=== PATIENT | male | born 1980 | race Caucasian/White ===

== ENCOUNTER 2016-06-06 16:57 | Observation (INO) | payer SELFPAY ==
[~2016-06-06] VITALS: Ht 180.3 cm; Wt 70.0 kg
[2016-06-06 17:00] VITALS: BP 114/76; PULSE 88; RESP 20; TEMP 98.7; O2SAT 97
--- NOTE | 2016-06-06 17:54 | PD ---
HPI Chief Complaint: Abdominal Pain Time Seen by Provider: 17:16 Travel History International Travel<30 days: No Contact w/Intl Traveler<30days: No Traveled to known affect area: No History of Present Illness HPI 36-year-old male came to the emergency room with history of abdominal pain in the left lower quadrant, non radiating. Patient says he had his appendix taken out 2 months ago and since then he's been getting pain on and off. No history of vomiting or diarrhea. This time the pain has been going on for past 5 days. No history of fever or chills. Vital signs are stable. [facility] Past Medical History Narrative Medical List of his past medical history as reviewed from the nursing note. Past Surgical History Other Surgery: Yes (appendectomy) Social History Alcohol Use: No Tobacco Use: Yes Allergies-Medications (Allergen,Severity, Reaction): Coded Allergies: Sulfa (Verified Allergy, Severe, 06/06/16) Comments List of allergies reviewed from the nursing note. Reported Meds & Prescriptions Reported Meds & Active Scripts Active No Active Prescriptions or Reported Medications Narrative Medication List of his home medications reviewed from the nursing note. Review of Systems Except as stated in HPI: all other systems reviewed are Neg Physical Exam Narrative GENERAL: Awake, alert, anxious, moderate distress SKIN: Warm and dry. HEAD: Atraumatic. Normocephalic. EYES: Pupils equal and round. No scleral icterus. No injection or drainage. ENT: No nasal bleeding or discharge. Mucous membranes pink and moist. NECK: Trachea midline. No JVD. CARDIOVASCULAR: Regular rate and rhythm. No murmur appreciated. RESPIRATORY: No accessory muscle use. Clear to auscultation. Breath sounds equal bilaterally. GASTROINTESTINAL: Abdomen soft, left lower quadrant tenderness, nondistended. Hepatic and splenic margins not palpable. MUSCULOSKELETAL: No obvious deformities. No clubbing. No cyanosis. No edema. NEUROLOGICAL: Awake and alert. No obvious cranial nerve deficits. Motor grossly within normal limits. Normal speech. PSYCHIATRIC: Appropriate mood and affect; insight and judgment normal. Data Data Last Documented VS Vital Signs Date Time Temp Pulse Resp B/P Pulse Ox O2 Delivery O2 Flow Rate FiO2 06/06/16 20:09 16 06/06/16 20:09 99 06/06/16 17:00 98.7 88 114/76 Room Air Orders Complete Blood Count With Diff (06/06/16 17:59) Comprehensive Metabolic Panel (06/06/16 17:59) Lipase (06/06/16 17:59) Urinalysis - C+S If Indicated (06/06/16 17:59) Ct Abd/Pel W Iv Contrast(Rout) (06/06/16 17:59) Iv Access Insert/Monitor (06/06/16 17:59) Ecg Monitoring (06/06/16 17:59) Oximetry (06/06/16 17:59) Morphine Inj (Morphine Inj) (06/06/16 18:00) Ondansetron Inj (Zofran Inj) (06/06/16 18:00) Sodium Chlor 0.9% 1000 Ml Inj (Ns 1000 M (06/06/16 17:59) Sodium Chloride 0.9% Flush (Ns Flush) (06/06/16 18:00) Diatrizoate Liq ( Gastroview Liq) (06/06/16 18:04) Oral Contrast - Adult (06/06/16 18:06) Iohexol 350 Inj (Omnipaque 350 Inj) (06/06/16 19:47) Morphine Inj (Morphine Inj) (06/06/16 20:15) Levofloxacin 750 Mg Premix Inj (Levaquin (06/06/16 20:30) Metronidazole 500 Mg Inj (Flagyl 500 Mg (06/06/16 20:30) Admit Order (Ed Use Only) (06/06/16 20:35) Labs Laboratory Tests Test 06/06/16 06/06/16 18:15 20:00 White Blood Count 11.7 TH/MM3 Red Blood Count 5.15 MIL/MM3 Hemoglobin 15.1 GM/DL Hematocrit 45.4 % Mean Corpuscular Volume 88.2 FL Mean Corpuscular Hemoglobin 29.3 PG Mean Corpuscular Hemoglobin 33.2 % Concent Red Cell Distribution Width 14.8 % Platelet Count 254 TH/MM3 Mean Platelet Volume 9.0 FL Neutrophils (%) (Auto) 67.1 % Lymphocytes (%) (Auto) 22.3 % Monocytes (%) (Auto) 7.5 % Eosinophils (%) (Auto) 2.6 % Basophils (%) (Auto) 0.5 % Neutrophils # (Auto) 7.8 TH/MM3 Lymphocytes # (Auto) 2.6 TH/MM3 Monocytes # (Auto) 0.9 TH/MM3 Eosinophils # (Auto) 0.3 TH/MM3 Basophils # (Auto) 0.1 TH/MM3 CBC Comment DIFF FINAL Differential Comment Sodium Level 141 MEQ/L Potassium Level 3.9 MEQ/L Chloride Level 104 MEQ/L Carbon Dioxide Level 31.9 MEQ/L Anion Gap 5 MEQ/L Blood Urea Nitrogen 15 MG/DL Creatinine 1.08 MG/DL Estimat Glomerular Filtration 77 ML/MIN Rate Random Glucose 80 MG/DL Calcium Level 8.8 MG/DL Total Bilirubin 0.8 MG/DL Aspartate Amino Transf 31 U/L (AST/SGOT) Alanine Aminotransferase 21 U/L (ALT/SGPT) Alkaline Phosphatase 119 U/L Total Protein 7.3 GM/DL Albumin 3.8 GM/DL Lipase 97 U/L Urine Color LIGHT-YELLOW Urine Turbidity CLEAR Urine pH 6.0 Urine Specific [place] 1.013 Urine Protein NEG mg/dL Urine Glucose (UA) NEG mg/dL Urine Ketones NEG mg/dL Urine Occult Blood NEG Urine Nitrite NEG Urine Bilirubin NEG Urine Urobilinogen LESS THAN 2.0 MG/DL Urine Leukocyte Esterase NEG Urine RBC LESS THAN 1 /hpf Urine WBC LESS THAN 1 /hpf Microscopic Urinalysis Comment CULT NOT INDICATED MDM Medical Decision Making Medical Screen Exam Complete: Yes Emergency Medical Condition: Yes Medical Record Reviewed: Yes Differential Diagnosis Acute diverticulitis, UTI, abdominal pain NOS Narrative Course 6:54 PM awaiting for the blood test results and the CAT scan to be done and resulted. Will be signed over to the oncoming ER physician. Patient has been medicated for pain. Procedures EKG Prior to Arrival: No Scripts No Active Prescriptions or Reported Meds Elke Clark MD Jun 06, 2016 17:54
[2016-06-06] MEDS ORDERED: SODIUM CHLOR 0.9% 1000 ML INJ 1,000 ML IV SCH (17:59)
[2016-06-06] MEDS ORDERED: ONDANSETRON HCL 4 MG/2 ML VIAL IVP ONE (18:00)
[2016-06-06] MEDS ORDERED: SODIUM CHLORIDE 0.9% FLUSH 5 ML FLUSH IVF PRN (18:00)
[2016-06-06] MEDS ORDERED: MORPHINE SULFATE 4 MG/ML INJ IV PUSH ONE ×2 (18:00→20:15)
[2016-06-06] MEDS ORDERED: DIATRIZOATE MEGLUM/DIATRIZOATE SOD 9 ML CUP ONE (18:04)
[2016-06-06 18:45] LABS: AUTOMATED NEUTROPHIL # 7.8 TH/MM3 (1.8-7.7); BASOPHIL # 0.1 TH/MM3 (0-0.2); BASOPHIL % 0.5 % (0.0-2.0); EOSINOPHIL # 0.3 TH/MM3 (0-0.4); EOSINOPHIL % 2.6 % (0.0-4.0); HEMATOCRIT 45.4 % (39.0-51.0); HEMO FLAGS DIFF FINAL; LYMPH % 22.3 % (9.0-44.0); LYMPHOCYTE # 2.6 TH/MM3 (1.0-4.8); MEAN CELL VOLUME 88.2 FL (80.0-100.0); MEAN CORPUSCULAR HEMOGLOBIN 29.3 PG (27.0-34.0); MEAN CORPUSCULAR HGB CONC 33.2 % (32.0-36.0); MONO % 7.5 % (0.0-8.0); NEUT % 67.1 % (16.0-70.0); PLATELET COUNT 254 TH/MM3 (150-450); RED BLOOD COUNT 5.15 MIL/MM3 (4.50-5.90); RED CELL DISTRIBUTION WIDTH 14.8 % (11.6-17.2); WHITE BLOOD COUNT 11.7 TH/MM3 (4.0-11.0)
[2016-06-06 19:21] LABS: ALKALINE PHOSPHATASE 119 U/L (45-117); ALT (GPT) 21 U/L (12-78); ANION GAP 5 MEQ/L (5-15); AST (GOT) 31 U/L (15-37); BICARBONATE 31.9 MEQ/L (21.0-32.0); BLOOD UREA NITROGEN 15 MG/DL (7-18); CHLORIDE 104 MEQ/L (98-107); GLOMERULAR FILTRATION RATE 77 ML/MIN (>89); SODIUM (NA) 141 MEQ/L (136-145); TOTAL BILIRUBIN ADULT 0.8 MG/DL (0.2-1.0)
[2016-06-06 19:25] LABS: POTASSIUM 3.9 MEQ/L (3.5-5.1)
[2016-06-06] MEDS ORDERED: IOHEXOL 350 MG/ML 10 ML VIAL (for RAD DIAG) IV ONE (19:47)
--- NOTE | 2016-06-06 20:03 | RADRPT ---
EXAM DATE/TIME: 06/06/2016 19:40 [place] COMPARISON: No previous studies available for comparison. INDICATIONS : Left lower quadrant pain. Appendectomy a few months ago, complains of pain since surgery. IV CONTRAST: 76 cc Omnipaque 350 (iohexol) IV ORAL CONTRAST: No oral contrast ingested. RADIATION DOSE: 9.95 CTDIvol (mGy) MEDICAL HISTORY : None SURGICAL HISTORY : Appendectomy. ENCOUNTER: Initial ACUITY: 3 months PAIN SCALE: 5/10 LOCATION: Left lower quadrant TECHNIQUE: Volumetric scanning of the abdomen and pelvis was performed. Using automated exposure control and ad justment of the mA and/or kV according to patient size, radiation dose was kept as low as reasonably achievable to obtain optimal diagnostic quality images. FINDINGS: LOWER LUNGS: The visualized lower lungs are clear. LIVER: There is a round hypodense lesion in the lateral segment left lobe liver measuring 2.2 cm. Margins a re mildly irregular and there appears to be a nodular area along the right lateral wall. Mean CT den sity is 45 Hounsfield units. No focal lesions in the right lobe of the liver. No biliary ductal dil atation. No calcified gallstones. SPLEEN: Normal size without lesion. PANCREAS: Within normal limits. KIDNEYS: Normal in size and shape. There is no mass, stone or hydronephrosis. ADRENAL GLANDS: Within normal limits. VASCULAR: There is no aortic aneurysm. BOWEL/MESENTERY: There is moderate distention of the stomach with air fluid level. No dilated loops of small or large bowel. Oral contrast passes two thirds the way through the small bowel. No induration about the ap pendectomy site in the right lower quadrant. There are multiple diverticula in the sigmoid colon. T here is a focal rounded area of rim density about some fat located anterior to the junction of the si gmoid colon and descending colon; this measures 1.6 cm in length and there is some mild induration of the fat about this area. There are multiple small diverticula seen throughout the sigmoid colon. T here is a small amount of free fluid seen about the dependent portion of the pelvis and rectum. ABDOMINAL WALL: Within normal limits. RETROPERITONEUM: There is no lymphadenopathy. BLADDER: No wall thickening or mass. REPRODUCTIVE: Within normal limits. INGUINAL: There is no lymphadenopathy or hernia. MUSCULOSKELETAL: Within normal limits for patient age. CONCLUSION: 1. Focal area of induration surrounding a rim density about some fat adjacent to the junction of the descending colon and sigmoid colon. There is associated mild free fluid in the pelvis. There are mu ltiple diverticula in the sigmoid colon, but this density appears to be on the mesenteric side. Diff erential considerations for this finding include a small inflamed diverticulum and epiploic appendagi tis. 2. Focal lesion in the left lobe liver may represent a hemangioma or complicated cyst. Further asses sment could be performed with dynamic phase MRI. Brian Brady MD on June 06, 2016 at 19:54 Board Certified Radiologist. This report was verified electronically.
[2016-06-06 20:09] VITALS: O2SAT 99
[2016-06-06 20:24] LABS: BLOOD, URINE NEG (NEG); GLUCOSE,URINE NEG (NEG); KETONE, URINE NEG (NEG); NITRITE,URINE NEG (NEG); URINE COLOR LIGHT-YELLOW (YELLW/STRAW)
--- NOTE | 2016-06-06 20:27 | PD ---
Physical Exam Narrative Patient was seen by ED physician and signed out to me. Data Data Last Documented VS Vital Signs Date Time Temp Pulse Resp B/P Pulse Ox O2 Delivery O2 Flow Rate FiO2 06/06/16 20:09 16 06/06/16 20:09 99 06/06/16 17:00 98.7 88 114/76 Room Air Orders Complete Blood Count With Diff (06/06/16 17:59) Comprehensive Metabolic Panel (06/06/16 17:59) Lipase (06/06/16 17:59) Urinalysis - C+S If Indicated (06/06/16 17:59) Ct Abd/Pel W Iv Contrast(Rout) (06/06/16 17:59) Iv Access Insert/Monitor (06/06/16 17:59) Ecg Monitoring (06/06/16 17:59) Oximetry (06/06/16 17:59) Morphine Inj (Morphine Inj) (06/06/16 18:00) Ondansetron Inj (Zofran Inj) (06/06/16 18:00) Sodium Chlor 0.9% 1000 Ml Inj (Ns 1000 M (06/06/16 17:59) Sodium Chloride 0.9% Flush (Ns Flush) (06/06/16 18:00) Diatrizoate Liq ( Gastroview Liq) (06/06/16 18:04) Oral Contrast - Adult (06/06/16 18:06) Iohexol 350 Inj (Omnipaque 350 Inj) (06/06/16 19:47) Morphine Inj (Morphine Inj) (06/06/16 20:15) Labs Laboratory Tests Test 06/06/16 18:15 White Blood Count 11.7 TH/MM3 Red Blood Count 5.15 MIL/MM3 Hemoglobin 15.1 GM/DL Hematocrit 45.4 % Mean Corpuscular Volume 88.2 FL Mean Corpuscular Hemoglobin 29.3 PG Mean Corpuscular Hemoglobin 33.2 % Concent Red Cell Distribution Width 14.8 % Platelet Count 254 TH/MM3 Mean Platelet Volume 9.0 FL Neutrophils (%) (Auto) 67.1 % Lymphocytes (%) (Auto) 22.3 % Monocytes (%) (Auto) 7.5 % Eosinophils (%) (Auto) 2.6 % Basophils (%) (Auto) 0.5 % Neutrophils # (Auto) 7.8 TH/MM3 Lymphocytes # (Auto) 2.6 TH/MM3 Monocytes # (Auto) 0.9 TH/MM3 Eosinophils # (Auto) 0.3 TH/MM3 Basophils # (Auto) 0.1 TH/MM3 CBC Comment DIFF FINAL Differential Comment Sodium Level 141 MEQ/L Potassium Level 3.9 MEQ/L Chloride Level 104 MEQ/L Carbon Dioxide Level 31.9 MEQ/L Anion Gap 5 MEQ/L Blood Urea Nitrogen 15 MG/DL Creatinine 1.08 MG/DL Estimat Glomerular Filtration 77 ML/MIN Rate Random Glucose 80 MG/DL Calcium Level 8.8 MG/DL Total Bilirubin 0.8 MG/DL Aspartate Amino Transf 31 U/L (AST/SGOT) Alanine Aminotransferase 21 U/L (ALT/SGPT) Alkaline Phosphatase 119 U/L Total Protein 7.3 GM/DL Albumin 3.8 GM/DL Lipase 97 U/L [facility] Supervised Visit with EUGENIA: No Interpretation(s) 2017 p.m. Last Impressions Abdomen/Pelvis CT 06/06/16 6208 Signed Impressions: Service Date/Time: Monday, June 06, 2016 19:40 - CONCLUSION: 1. Focal area of induration surrounding a rim density about some fat adjacent to the junction of the descending colon and sigmoid colon. There is associated mild free fluid in the pelvis. There are multiple diverticula in the sigmoid colon, but this density appears to be on the mesenteric side. Differential considerations for this finding include a small inflamed diverticulum and epiploic appendagitis. 2. Focal lesion in the left lobe liver may represent a hemangioma or complicated cyst. Further assessment could be performed with dynamic phase MRI. Brian Brady MD 2017 p.m. CBC within normal limit. CMP within normal limit. Narrative Course Patient given IV fluids, morphine. Levaquin 750 mg IV. Flagyl 500 mg IV. Diagnosis Primary Impression: Acute diverticulitis Additional Impression: Epiploic appendagitis Admitting Information Admitting Physician Requests: Observation Scripts No Active Prescriptions or Reported Meds Vinicius Faulkner MD Jun 06, 2016 20:27
[2016-06-06] MEDS ORDERED: metroNIDAZOLE 500 MG INJ 100 ML IV ONE (20:30)
[2016-06-06] MEDS ORDERED: LEVOFLOXACIN 750 MG PREMIX INJ 150 ML IV ONE (20:30)
[2016-06-06 20:44] LABS: COMMENT (UR) CULT NOT INDICATED; CULTURE IF INDICATED CULT NOT INDICATED
--- NOTE | 2016-06-06 20:57 | HHI.HP ---
[facility] Primary Care Physician No Primary Care Physician Admission Diagnosis acute diverticulitis. Epiploic appendagitis Diagnoses: (1) Intractable abdominal pain Diagnosis: Principal (2) Diverticulitis Diagnosis: Principal (3) Tobacco abuse Diagnosis: Principal Travel History International Travel<30 Days: No Contact w/Intl Traveler <30 Da: No Traveled to Known Affected Are: No History of Present Illness This is a 36-year-old male with no significant PMH who presented to the ER with complaints of abdominal pain x5 days. States he [place]oscopic [place] appro[place] and has had intermittent pain since then, however over the last 5 days pain has gotten progressively worse. Notes pain worse w/ cough, urination or w/ bowel movement. Denies fever, chills , nausea, vomiting or diarrhea. On arrival, BP 114/76, HR 88, O2 sat 97% on RA , Afebrile. WBC 11.7, no shift. Chemistry essentially unremarkable except for GFR 77. U/a negative. CT Abd/Pelvis w/ focal area of induration surrounding rim density adjacent to the junction of the descending colon and sigmoid colon associated mild free fluid in pelvis, multiple diverticula in the sigmoid colon , possibly inflamed diverticulum versus epiploic appendagitis. S/p Levaquin and Flagyl in ER. S/p Morphine x2 w/ minimal improvement. Review of Systems Other ROS: 14 point review of systems otherwise negative. Past Family Social History Past Medical History PMH: None Past Surgical History PAST SURGICAL HISTORY: Laparoscopic Appendectomy Allergies: Coded Allergies: Sulfa (Verified Allergy, Severe, 06/06/16) Family History PAST FAMILY HISTORY: Reviewed. No h/o DM or CAD Social History PAST SOCIAL HISTORY: Negative for alcohol or drugs. Smokes 1ppd. Physical Exam Vital Signs Vital Signs Date Time Temp Pulse Resp B/P Pulse Ox O2 Delivery O2 Flow Rate FiO2 06/06/16 20:09 16 06/06/16 20:09 99 06/06/16 17:26 18 06/06/16 17:00 98.7 88 20 114/76 97 Room Air Physical Exam PE: GENERAL: Middle aged male in no acute distress, at bedside. Smells strongly of tobacco. HEENT: PERRLA, EOMI. No scleral icterus or conjunctival pallor. No lid lag or facial droop. CARDIOVASCULAR: Regular rate and rhythm. No obvious murmurs to auscultation. No chest tenderness to palpation. RESPIRATORY: No obvious rhonchi or wheezing. Clear to auscultation. Breath sounds equal bilaterally. GASTROINTESTINAL: Abdomen soft, mild generalized tenderness to palpation, nondistended. BS normal. MUSCULOSKELETAL: Extremities without clubbing, cyanosis, or edema. No obvious deformities. NEUROLOGICAL: Awake, alert and oriented x4. No focal neurologic deficits. Moving both upper and lower extremities spontaneously. Laboratory Laboratory Tests Test 06/06/16 06/06/16 18:15 20:00 White Blood Count 11.7 Red Blood Count 5.15 Hemoglobin 15.1 Hematocrit 45.4 Mean Corpuscular Volume 88.2 Mean Corpuscular Hemoglobin 29.3 Mean Corpuscular Hemoglobin 33.2 Concent Red Cell Distribution Width 14.8 Platelet Count 254 Mean Platelet Volume 9.0 Neutrophils (%) (Auto) 67.1 Lymphocytes (%) (Auto) 22.3 Monocytes (%) (Auto) 7.5 Eosinophils (%) (Auto) 2.6 Basophils (%) (Auto) 0.5 Neutrophils # (Auto) 7.8 Lymphocytes # (Auto) 2.6 Monocytes # (Auto) 0.9 Eosinophils # (Auto) 0.3 Basophils # (Auto) 0.1 CBC Comment DIFF FINAL Differential Comment Sodium Level 141 Potassium Level 3.9 Chloride Level 104 Carbon Dioxide Level 31.9 Anion Gap 5 Blood Urea Nitrogen 15 Creatinine 1.08 Estimat Glomerular Filtration 77 Rate Random Glucose 80 Calcium Level 8.8 Total Bilirubin 0.8 Aspartate Amino Transf 31 (AST/SGOT) Alanine Aminotransferase 21 (ALT/SGPT) Alkaline Phosphatase 119 Total Protein 7.3 Albumin 3.8 Lipase 97 Urine Color LIGHT-YELLOW Urine Turbidity CLEAR Urine pH 6.0 Urine Specific [place] 1.013 Urine Protein NEG Urine Glucose (UA) NEG Urine Ketones NEG Urine Occult Blood NEG Urine Nitrite NEG Urine Bilirubin NEG Urine Urobilinogen LESS THAN 2.0 Urine Leukocyte Esterase NEG Urine RBC LESS THAN 1 Urine WBC LESS THAN 1 Microscopic Urinalysis Comment CULT NOT INDICATED Result Diagram: 06/06/16181406/06/161814 Assessment and Plan Problem List: (1) Intractable abdominal pain ICD Code: R10.9 Status: Acute (2) Diverticulitis ICD Code: K57.92 Status: Acute (3) Tobacco abuse ICD Code: Z72.0 Status: Acute Assessment and Plan A/P: 1. Intractable Abd Pain: c/o ongoing pain x2 months following Appendectomy, now w/ pain progressively worse x5 days. No nausea, vomiting or diarrhea. Denies fever, chills. S/p Morphine x2 in ER, reports no improvement. Analgesics/antiemetics as needed. 2. Diverticulitis: Possible. CT Abd/Pelvis w/ focal area of induration surrounding area adjacent to the junction of descending colon and sigmoid colon , associated mild free fluid in the pelvis and multiple diverticula, possibly inflamed diverticulum or epiploic appendagitis, images reviewed by me. Afebrile. WBC 11 however no shift. S/p Levaquin/Flagyl in ER, will continue w / IV Abx, IVF for hydration. Consult GI for further evaluation. 3. Tobacco Abuse: Counselled. NicoDerm prn. 4. DVT Prophylaxis: SCD/Teds. 5. Social work for d/c planning as needed. 6. Case discussed w/ ER physician at length. Anan Collins MD Jun 06, 2016 20:57
[2016-06-06] MEDS ORDERED: ONDANSETRON HCL 4 MG/2 ML VIAL IVP PRN (21:00)
[2016-06-06] MEDS ORDERED: ACETAMINOPHEN 325 MG TAB PO PRN (21:00)
[2016-06-06] MEDS ORDERED: SODIUM CHLORIDE 0.9% FLUSH 5 ML FLUSH FLUSH PRN (21:00)
[2016-06-06] MEDS ORDERED: BISACODYL 10 MG SUPP PR PRN (21:00)
[2016-06-06] MEDS ORDERED: ACETAMINOPHEN/HYDROcodone 325 MG/5 MG TAB PO PRN (21:00)
[2016-06-06] MEDS: SODIUM CHLORIDE 0.9% FLUSH 5 ML FLUSH FLUSH SCH (21:14)
[2016-06-06] MEDS ORDERED: NICOTINE 21 MG/24 HR PATCH TD PRN (21:30)
[2016-06-06] MEDS: SODIUM CHLOR 0.9% 1000 ML INJ 1,000 ML IV SCH (21:40)
[2016-06-06] MEDS: HYDROmorphone HCL PF 1 MG/ML VIAL IV PRN (21:52)
[2016-06-06 22:05] VITALS: BP 110/70; PULSE 88; RESP 18; O2SAT 99
[2016-06-06 23:12] VITALS: BP 131/80; PULSE 82; RESP 18; TEMP 98; O2SAT 97
[2016-06-07] MEDS: HYDROmorphone HCL PF 1 MG/ML VIAL IV PRN ×4 (01:02→10:35)
[2016-06-07 04:00] VITALS: BP 134/79; PULSE 97; RESP 18; TEMP 98; O2SAT 97
[2016-06-07] MEDS: metroNIDAZOLE 500 MG INJ 100 ML IV SCH ×2 (04:22→12:53)
[2016-06-07] MEDS: SODIUM CHLOR 0.9% 1000 ML INJ 1,000 ML IV SCH (07:00)
[2016-06-07 08:23] VITALS: BP 117/62; PULSE 63; RESP 20; TEMP 97.8; O2SAT 95
[2016-06-07] MEDS: SODIUM CHLORIDE 0.9% FLUSH 5 ML FLUSH FLUSH SCH (09:00)
[2016-06-07] MEDS ORDERED: REMOVE OLD PATCH-NICOTINE T-DERMAL SCH (09:00)
--- NOTE | 2016-06-07 10:15 | HHI.PR ---
Subjective Remarks Follow up for abdominal pain. He reports continued pain of the LLQ, described as constant 10/10 pain. No nausea/vomiting/diarrhea. Some chills but no fever. He is upset about not receiving his IV Dilaudid every 3 hours. Objective Vitals Vital Signs Date Time Temp Pulse Resp B/P Pulse Ox O2 Delivery O2 Flow Rate FiO2 06/07/16 08:23 97.8 63 20 117/62 95 06/07/16 04:00 98.0 97 18 134/79 97 06/06/16 23:12 98.0 82 18 131/80 97 06/06/16 22:05 88 18 110/70 99 Room Air 06/06/16 21:30 18 06/06/16 20:09 16 06/06/16 20:09 99 06/06/16 17:26 18 06/06/16 17:00 98.7 88 20 114/76 97 Room Air I/O 06/06/16 06/06/16 06/06/16 06/07/16 06/07/16 06/07/16 07:00 15:00 23:00 07:00 15:00 23:00 Intake Total 929 ml Balance 929 ml Intake Oral 240 ml IV Total 689 ml Result Diagram: 06/06/165 06/06/161814 Imaging Last Impressions Abdomen/Pelvis CT 06/06/16 8759 Signed Impressions: Service Date/Time: Monday, June 06, 2016 19:40 - CONCLUSION: 1. Focal area of induration surrounding a rim density about some fat adjacent to the junction of the descending colon and sigmoid colon. There is associated mild free fluid in the pelvis. There are multiple diverticula in the sigmoid colon, but this density appears to be on the mesenteric side. Differential considerations for this finding include a small inflamed diverticulum and epiploic appendagitis. 2. Focal lesion in the left lobe liver may represent a hemangioma or complicated cyst. Further assessment could be performed with dynamic phase MRI. Brian Brady MD Objective Remarks GENERAL: Well-nourished, well-developed male patient in NAD. SKIN: Warm and dry. No rash. HEAD: Normocephalic. Atraumatic. NECK: Supple. Trachea midline. CARDIOVASCULAR: Regular rate and rhythm. S1, S2 noted. No murmur appreciated. RESPIRATORY: No accessory muscle use. Clear to auscultation. Breath sounds equal bilaterally. GASTROINTESTINAL: Abdomen soft, nondistended, TTP at LLQ. Normoactive bowel sounds x4. MUSCULOSKELETAL: No obvious deformities. Extremities without clubbing, cyanosis , or edema. NEUROLOGICAL: Awake and alert. No obvious cranial nerve deficits. Motor grossly within normal limits.Normal speech. PSYCHIATRIC: Anxious/agitated; insight and judgment normal. Medications and IVs Current Medications Medications (Trade) Dose Ordered Sig/Cadence Route Start Time Stop Time Status Last Admin (NS 1000 ml Inj) 1,000 ml @ 100 mls/hr Q10H IV 06/06/16 21:00 06/07/16 07:00 (NS Flush) 2 ml UNSCH PRN FLUSH 06/06/16 21:00 (NS Flush) 2 ml BID FLUSH 06/06/16 21:00 06/06/16 21:14 (Zofran Inj) 4 mg Q6H PRN IVP 06/06/16 21:00 (Dulcolax Supp) 10 mg DAILY PRN MD 06/06/16 21:00 (Tylenol) 650 mg Q6H PRN PO 06/06/16 21:00 ([place] 5-325 Mg) 1 tab Q4H PRN PO 06/06/16 21:00 Hydromorphone HCl 1 mg 1 mg Q3H PRN IV 06/06/16 21:00 06/07/16 10:35 Levofloxacin/ Dextrose 150 ml @ 100 mls/hr Q24H IV 06/07/16 21:00 (Flagyl 500 Mg Inj) 100 ml @ 100 mls/hr Q8H IV 06/07/16 04:00 06/07/16 04:22 (Habitrol 21 Mg Patch.24 Hr) 1 patch DAILY PRN TD 06/06/16 21:30 Miscellaneous Information 1 DAILY T-DERMAL 06/07/16 09:00 Urinary Catheter: No Vascular Central Line Catheter: No A/P Problem List: (1) Intractable abdominal pain ICD Code: R10.9 Status: Acute (2) Diverticulitis ICD Code: K57.92 Status: Acute (3) Tobacco abuse ICD Code: Z72.0 Status: Acute Assessment and Plan 36-year-old male with no significant PMH who presented to the ER with complaints of abdominal pain x5 days; underwent [place]oscopic [place] appro[place] and has had intermittent pain since then, however over the last 5 days pain has gotten progressively worse. Intractable Abd Pain: c/o ongoing pain x2 months following Appendectomy, now w / pain progressively worse x5 days. No nausea, vomiting or diarrhea. Denies fever, chills. S/p Morphine x2 in ER, reports no improvement. Continue pain control with IV Dilaudid prn and antiemetics as needed. Suspected Diverticulitis: CT Abd/Pelvis w/ focal area of induration surrounding area adjacent to the junction of descending colon and sigmoid colon, associated mild free fluid in the pelvis and multiple diverticula, possibly inflamed diverticulum or epiploic appendagitis, images reviewed by me. Afebrile. WBC 11 however no shift. S/p Levaquin/Flagyl in ER, will continue w/ IV Abx, IVF for hydration. Consult GI for further evaluation. Tobacco Abuse: Counselled. GustavoDerjevon simmonsn. DVT Prophylaxis: SCD/Teds. Written by Fabiola López, acting as scribe for Dr. Whitten on 06/07/16 at 10:15. The documentation accurately reflects the work performed [id number] by me Dr. Whitten on 06/07/16 at 10:15. Discharge Planning 1415hrs: RN informs me patient left AMA. He was AAOx4. Patient Marcellus Wolf has decided to leave the hospital against medical advice. This patient has the capacity to refuse care and understands the risks of leaving, including permanent disability and/or , and has had an opportunity to ask questions about his condition. The patient has been informed that he may return for care at any time, and follow up has been advised. Discharged patient AGAINST MEDICAL ADVICE Fabiola López PA-C Jun 07, 2016 10:15 Nelsy Whitten MD Jun 07, 2016 15:02
[2016-06-07 11:44] VITALS: BP 122/67; PULSE 78; RESP 20; TEMP 97.7; O2SAT 94
[2016-06-07] MEDS ORDERED: LEVOFLOXACIN 750 MG PREMIX INJ 150 ML IV SCH (21:00)
== END 2016-06-07 14:56 | disposition left against medical advice (07) ==
LOC: EDBD → NEPC 16:57 → NEDA 20:38 → NEPGCP 22:36
PROVIDERS: ADMIT Hospitalist; ATTEND Hospitalist
DX: K57.32 Diverticulitis of large intestine without perforation or abscess without bleeding (principal); R10.32 Left lower quadrant pain; F17.210 Nicotine dependence, cigarettes, uncomplicated; Z71.6 Tobacco abuse counseling
CPT/HCPCS: 74177; 80053; 81001; 83690; 85025; 96361; 96374; 96375; 96376; 99285; G0378; J1170; J1956; J2270; J2405; J7030; Q9963; Q9967

== ENCOUNTER 2016-06-22 21:41 | Emergency (ER) | payer SELFPAY ==
[~2016-06-22] VITALS: Ht 180.3 cm; Wt 68.0 kg
[2016-06-22 21:44] VITALS: BP 113/78; PULSE 96; RESP 16; TEMP 97.5; O2SAT 98
[2016-06-23 03:04] LABS: AUTOMATED NEUTROPHIL # 7.2 TH/MM3 (1.8-7.7); BASOPHIL # 0.1 TH/MM3 (0-0.2); BASOPHIL % 0.6 % (0.0-2.0); EOSINOPHIL # 0.3 TH/MM3 (0-0.4); EOSINOPHIL % 2.8 % (0.0-4.0); HEMATOCRIT 44.2 % (39.0-51.0); HEMO FLAGS DIFF FINAL; LYMPHOCYTE # 2.7 TH/MM3 (1.0-4.8); MEAN CELL VOLUME 86.8 FL (80.0-100.0); MEAN CORPUSCULAR HEMOGLOBIN 29.2 PG (27.0-34.0); MEAN CORPUSCULAR HGB CONC 33.6 % (32.0-36.0); MONO % 9.5 % (0.0-8.0); NEUT % 63.1 % (16.0-70.0); PLATELET COUNT 261 TH/MM3 (150-450); RED CELL DISTRIBUTION WIDTH 14.5 % (11.6-17.2); WHITE BLOOD COUNT 11.4 TH/MM3 (4.0-11.0)
[2016-06-23 03:12] LABS: BLOOD, URINE NEG (NEG); GLUCOSE,URINE NEG (NEG); KETONE, URINE 150 mg/dL (NEG); MUCUS URINE FEW /lpf (OCC); NITRITE,URINE NEG (NEG); PH, URINE 5.5 (5.0-8.5); URINE COLOR YELLOW (YELLW/STRAW)
[2016-06-23 03:14] LABS: COMMENT (UR) CULT NOT INDICATED; CULTURE IF INDICATED CULT NOT INDICATED
[2016-06-23 03:26] LABS: ALT (GPT) 21 U/L (12-78); ANION GAP 9 MEQ/L (5-15); AST (GOT) 20 U/L (15-37); BICARBONATE 28.6 MEQ/L (21.0-32.0); BLOOD UREA NITROGEN 24 MG/DL (7-18); CHLORIDE 102 MEQ/L (98-107); GLOMERULAR FILTRATION RATE 93 ML/MIN (>89); POTASSIUM 3.5 MEQ/L (3.5-5.1); SODIUM (NA) 140 MEQ/L (136-145)
[2016-06-23 03:29] LABS: ALKALINE PHOSPHATASE 125 U/L (45-117); TOTAL BILIRUBIN ADULT 1.3 MG/DL (0.2-1.0)
[2016-06-23 05:52] VITALS: BP 151/61; PULSE 91; RESP 22; TEMP 97.8; O2SAT 100
--- NOTE | 2016-06-23 06:27 | PD ---
HPI Chief Complaint: Abdominal Pain Time Seen by Provider: 05:46 Travel History International Travel<30 days: No Contact w/Intl Traveler<30days: No Traveled to known affect area: No History of Present Illness HPI The patient is a 36 year old male who presents to the [facility] emergency department with a history of abdominal pain that he reports began again 2 days ago. The patient reports that he was admitted to the hospital with similar left lower quadrant abdominal pain 2 weeks ago. He reports that the pain began 2 days prior to that hospital admission. The patient was noted on CT scan to have a focal area of induration adjacent to the junction of the descending colon and the sigmoid colon. The patient was admitted for continued evaluation , IV antibiotic, IV pain medication. According to the electronic medical record , the patient left AGAINST MEDICAL ADVICE prior to the completion of his evaluation. In addition to the patient's complaints of left lower quadrant abdominal pain, the patient reports that 1 hour prior to arriving in the emergency department he had onset of dried her. 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 The patient has a history of tracheostomy previously area he reports that nebulizer treatments usually help. The patient denies any recent fevers, cough, congestion, neck pain, chest pain, vomiting, diarrhea, urinary symptoms, or neurologic symptoms. The patient reports that he recently moved to the area from [place]. He denies having a primary care physician. 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 Cancer: No Cardiovascular Problems: No Diminished Hearing: No Diverticulitis: Yes Endocrine: No Genitourinary: No Immune Disorder: No Medical other: Yes (TRACHEAL STENOSIS) Neurologic: No Psychiatric: No Reproductive: No Respiratory: No Tetanus Vaccination: Unknown Influenza Vaccination: No Past Surgical History Narrative Surgical The patient has a past surgical history significant for laparoscopic appendectomy, right forearm fasciotomy due to extravasation of contrast for a CT , reportedly a history of 100 prior tracheal surgery. Other Surgery: Yes (appendectomy) Social History Alcohol Use: No Tobacco Use: No (the patient reports that he quit smoking 2-3 years ago) Substance Use: No Allergies-Medications (Allergen,Severity, Reaction): Coded Allergies: Sulfa (Verified Allergy, Severe, 06/22/16) Reported Meds & Prescriptions Reported Meds & Active Scripts Active No Active Prescriptions or Reported Medications Review of Systems Except as stated in HPI: all other systems reviewed are Neg General / Constitutional: No: Fever Eyes: No: Visual changes HENT: No: Headaches, Rhinorrhea, Congestion Cardiovascular: No: Chest Pain or Discomfort Respiratory: Positive: Shortness of Breath, No: Cough Gastrointestinal: Positive: Abdominal Pain, No: Nausea, Vomiting, Diarrhea, Changes in Bowel Habits, Indigestion, Loss of Appetite Genitourinary: No: Urgency, Frequency, Dysuria, Flank Pain Musculoskeletal: No: Pain Skin: No Rash Neurologic: No: Weakness, Focal Abnormalities, Change in Mentation, Slurred Speech, Sensory Disturbance Psychiatric: No: Depression Endocrine: No: Polydipsia Hematologic/Lymphatic: No: Easy Bruising Physical Exam Narrative General: The patient is a well-developed well-nourished male in no acute distress. Head and Neck exam: Head is normocephalic atraumatic. Eyes: Pupils are equal round and reactive to light. Nose: Midline septum with pink mucous membranes Mouth: Dentition unremarkable. Moist mucus membranes. Posterior oropharynx is not erythematous. No tonsillar hypertrophy. Uvula midline. Airway patent. Neck: No palpable lymphadenopathy. No nuchal rigidity. No thyromegaly. Cardiovascular: Regular rate and rhythm without murmurs, gallops, or rubs. Lungs: The patient has equal breath sounds bilaterally. The patient has intermittent upper respiratory stridor noted., No wheezes, rhonchi, or crackles. Abdomen: Soft, with tenderness on palpation of the left lower quadrant of the abdomen, no other tenderness on palpation of the other 3 quadrants. No tenderness on palpation of McBurney's point. No guarding, rebound, or rigidity. Negative Dell sign. Normal bowel sounds are audible. Extremities: No clubbing, cyanosis, or edema. 2+ pulses in all 4 extremities. No calf tenderness on palpation. Back: No spinous process tenderness to palpation. No costovertebral angle tenderness to palpation. Neurologic Exam: Grossly nonfocal. Skin Exam: No rash noted. Intact skin that is warm and dry. Data Data Last Documented VS Vital Signs Date Time Temp Pulse Resp B/P Pulse Ox O2 Delivery O2 Flow Rate FiO2 06/23/16 07:14 87 16 111/63 100 Room Air 06/23/16 05:52 97.8 Orders Complete Blood Count With Diff (06/23/16 02:23) Comprehensive Metabolic Panel (06/23/16 02:23) Urinalysis - C+S If Indicated (06/23/16 02:23) Iv Access Insert/Monitor (06/23/16 02:23) Oxygen Administration (06/23/16 02:23) Oximetry (06/23/16 02:23) Lipase (06/23/16 02:23) Ct Abd/Pel W Iv Contrast(Rout) (06/23/16 05:57) Oral Contrast - Adult (06/23/16 06:03) Chest, Single Ap (06/23/16 06:10) Methylprednisolone So Succ Inj (Solumedr (06/23/16 06:30) Albuterol-Ipratropium Neb (Duoneb Neb) (06/23/16 06:30) Diatrizoate Liq ( Gastroview Liq) (06/23/16 06:41) Sodium Chlor 0.9% 1000 Ml Inj (Ns 1000 M (06/23/16 07:00) Blood Glucose (06/23/16 06:46) Labs Laboratory Tests Test 06/23/16 06/23/16 02:40 02:45 Urine Color YELLOW Urine Turbidity HAZY Urine pH 5.5 Urine Specific [place] 1.032 Urine Protein TRACE mg/dL Urine Glucose (UA) NEG mg/dL Urine Ketones 150 mg/dL Urine Occult Blood NEG Urine Nitrite NEG Urine Bilirubin NEG Urine Urobilinogen LESS THAN 2.0 MG/DL Urine Leukocyte Esterase NEG Urine RBC 2 /hpf Urine WBC 1 /hpf Urine Mucus FEW /lpf Microscopic Urinalysis Comment CULT NOT INDICATED White Blood Count 11.4 TH/MM3 Red Blood Count 5.10 MIL/MM3 Hemoglobin 14.9 GM/DL Hematocrit 44.2 % Mean Corpuscular Volume 86.8 FL Mean Corpuscular Hemoglobin 29.2 PG Mean Corpuscular Hemoglobin 33.6 % Concent Red Cell Distribution Width 14.5 % Platelet Count 261 TH/MM3 Mean Platelet Volume 8.6 FL Neutrophils (%) (Auto) 63.1 % Lymphocytes (%) (Auto) 24.0 % Monocytes (%) (Auto) 9.5 % Eosinophils (%) (Auto) 2.8 % Basophils (%) (Auto) 0.6 % Neutrophils # (Auto) 7.2 TH/MM3 Lymphocytes # (Auto) 2.7 TH/MM3 Monocytes # (Auto) 1.1 TH/MM3 Eosinophils # (Auto) 0.3 TH/MM3 Basophils # (Auto) 0.1 TH/MM3 CBC Comment DIFF FINAL Differential Comment Sodium Level 140 MEQ/L Potassium Level 3.5 MEQ/L Chloride Level 102 MEQ/L Carbon Dioxide Level 28.6 MEQ/L Anion Gap 9 MEQ/L Blood Urea Nitrogen 24 MG/DL Creatinine 0.91 MG/DL Estimat Glomerular Filtration 93 ML/MIN Rate Random Glucose 67 MG/DL Calcium Level 9.3 MG/DL Total Bilirubin 1.3 MG/DL Aspartate Amino Transf 20 U/L (AST/SGOT) Alanine Aminotransferase 21 U/L (ALT/SGPT) Alkaline Phosphatase 125 U/L Total Protein 7.7 GM/DL Albumin 4.2 GM/DL Lipase 111 U/L MDM Medical Decision Making Medical Screen Exam Complete: Yes Emergency Medical Condition: Yes Medical Record Reviewed: Yes Interpretation(s) Laboratory Tests Test 06/23/16 06/23/16 02:40 02:45 Urine Color YELLOW Urine Turbidity HAZY Urine pH 5.5 Urine Specific [place] 1.032 Urine Protein TRACE mg/dL Urine Glucose (UA) NEG mg/dL Urine Ketones 150 mg/dL Urine Occult Blood NEG Urine Nitrite NEG Urine Bilirubin NEG Urine Urobilinogen LESS THAN 2.0 MG/DL Urine Leukocyte Esterase NEG Urine RBC 2 /hpf Urine WBC 1 /hpf Urine Mucus FEW /lpf Microscopic Urinalysis Comment CULT NOT INDICATED White Blood Count 11.4 TH/MM3 Red Blood Count 5.10 MIL/MM3 Hemoglobin 14.9 GM/DL Hematocrit 44.2 % Mean Corpuscular Volume 86.8 FL Mean Corpuscular Hemoglobin 29.2 PG Mean Corpuscular Hemoglobin 33.6 % Concent Red Cell Distribution Width 14.5 % Platelet Count 261 TH/MM3 Mean Platelet Volume 8.6 FL Neutrophils (%) (Auto) 63.1 % Lymphocytes (%) (Auto) 24.0 % Monocytes (%) (Auto) 9.5 % Eosinophils (%) (Auto) 2.8 % Basophils (%) (Auto) 0.6 % Neutrophils # (Auto) 7.2 TH/MM3 Lymphocytes # (Auto) 2.7 TH/MM3 Monocytes # (Auto) 1.1 TH/MM3 Eosinophils # (Auto) 0.3 TH/MM3 Basophils # (Auto) 0.1 TH/MM3 CBC Comment DIFF FINAL Differential Comment Sodium Level 140 MEQ/L Potassium Level 3.5 MEQ/L Chloride Level 102 MEQ/L Carbon Dioxide Level 28.6 MEQ/L Anion Gap 9 MEQ/L Blood Urea Nitrogen 24 MG/DL Creatinine 0.91 MG/DL Estimat Glomerular Filtration 93 ML/MIN Rate Random Glucose 67 MG/DL Calcium Level 9.3 MG/DL Total Bilirubin 1.3 MG/DL Aspartate Amino Transf 20 U/L (AST/SGOT) Alanine Aminotransferase 21 U/L (ALT/SGPT) Alkaline Phosphatase 125 U/L Total Protein 7.7 GM/DL Albumin 4.2 GM/DL Lipase 111 U/L Differential Diagnosis Diverticulitis, versus colitis, versus pain medication seeking behavior Narrative Course During the course of the patients emergency department visit, the patients history, examination, and differential diagnosis were reviewed with the patient. The patient had IV access obtained and blood work sent for analysis. The patient was placed on a youth nutritional monitor with oximetry and blood pressure monitoring. The patient's electronic medical record was reviewed. The CT scan of the abdomen and pelvis that was done previously was done with IV contrast only, not by mouth contrast. Therefore, a CT scan with IV and by mouth contrast was ordered at this time to further evaluate. A chest x-ray has been ordered. The patient was provided for his upper respiratory wheezing/stridor Solu-Medrol 125 mg IV, DuoNeb 2. The patient has normal oxygen saturations on room air. The patient was given normal saline 1 L IV fluid bolus. The patients laboratory studies were reviewed and remarkable for a white count of 11.4, hemoglobin 14.9, platelets 261 with 9.5 monocytes. CMP is remarkable for BUN of 24, glucose 67, total bilirubin 1.3, alkaline phosphatase 125, urinalysis shows 150 ketones, otherwise no acute abnormality. Radiology studies were pending at the conclusion of my shift. The patient's case was checked out to the oncoming emergency physician to disposition based on the conclusion of his workup. Diagnosis Primary Impression: Abdominal pain Qualified Code: R10.32 - Left lower quadrant pain Scripts No Active Prescriptions or Reported Meds Sandra Padilla MD Jun 23, 2016 06:27
[2016-06-23] MEDS ORDERED: methylPREDNISolone SOD SUCC 125 MG/2 ML VIAL IVP ONE (06:30)
[2016-06-23] MEDS: RESP: ALBUTEROL 2.5 MG/IPRATROPIUM 0.5 MG NEB (SCH) INH (06:35)
[2016-06-23] MEDS ORDERED: DIATRIZOATE MEGLUM/DIATRIZOATE SOD 9 ML CUP ONE (06:41)
[2016-06-23] MEDS ORDERED: SODIUM CHLOR 0.9% 1000 ML INJ 1,000 ML IV ONE (07:00)
--- NOTE | 2016-06-23 07:04 | RADRPT ---
EXAM DATE/TIME: 06/23/2016 06:40 [facility] COMPARISON: No previous studies available for comparison. INDICATIONS : Shortness of breath. MEDICAL HISTORY : None. SURGICAL HISTORY : None. ENCOUNTER: Initial ACUITY: 1 day PAIN SCORE: 0/10 LOCATION: Bilateral chest FINDINGS: A single view of the chest demonstrates the lungs to be symmetrically aerated without evidence of mas s, infiltrate or effusion. The cardiomediastinal contours are unremarkable. Osseous structures are intact. CONCLUSION: Normal examination for a patient of this age. Rio Kelley MD on June 23, 2016 at 7:02 Board Certified Radiologist. This report was verified electronically.
[2016-06-23 07:14] VITALS: BP 111/63; PULSE 87; RESP 16; O2SAT 100
[2016-06-23] MEDS ORDERED: IOHEXOL 350 MG/ML 10 ML VIAL (for RAD DIAG) IV ONE (07:55)
--- NOTE | 2016-06-23 08:06 | RADRPT ---
EXAM DATE/TIME: 06/23/2016 07:47 [facility] COMPARISON: CT ABDOMEN & PELVIS W CONTRAST, June 06, 2016, 19:40. INDICATIONS : Left lower quadrant pain x 2 days. IV CONTRAST: 70 cc Omnipaque 350 (iohexol) IV ORAL CONTRAST: Prescribed oral contrast ingested. RADIATION DOSE: 4.52 CTDIvol (mGy) MEDICAL HISTORY : Diverticulitis. Tracheal stenosis. SURGICAL HISTORY : Appendectomy. Tracheostomy. ENCOUNTER: Initial ACUITY: 2 days PAIN SCALE: 8/10 LOCATION: Left lower quadrant TECHNIQUE: Volumetric scanning of the abdomen and pelvis was performed. Using automated exposure control and ad justment of the mA and/or kV according to patient size, radiation dose was kept as low as reasonably achievable to obtain optimal diagnostic quality images. FINDINGS: The limited portion of the lung base visualized is clear. Imaging through the liver demonstrates a 2.1 cm low-attenuation lesion within the dome of the liver s table compared to previous examination. This is nonspecific in appearance by CT. The spleen, pancreas , adrenal glands and kidneys are intact. The abdominal aorta is normal in caliber. There is no retroperitoneal lymphadenopathy. The visualized loops of small and large bowel in the upper abdomen are unremarkable in appearance. Imaging through the pelvis is provided. There is no free air or free fluid. No retroperitoneal lympha denopathy is identified. The visualized loops of small and large bowel in the pelvis are unremarkable . The focal area of inflammation seen on previous dated 06/06/16 has significantly improved. It is onl y faintly visualized on today's examination. The visualized bony structures are intact. CONCLUSION: 1. Small area of inflammation in the omentum in the left lower quadrant significantly improved when c ompared to previous examination. Primary considerations include a resolving epiploic appendagitis. No free air, abscess or findings to indicate bowel obstruction are seen. Leandro Cash MD on June 23, 2016 at 7:58 Board Certified Radiologist. This report was verified electronically.
--- NOTE | 2016-06-23 08:15 | PD ---
Data Data Last Documented VS Vital Signs Date Time Temp Pulse Resp B/P Pulse Ox O2 Delivery O2 Flow Rate FiO2 06/23/16 07:14 87 16 111/63 100 Room Air 06/23/16 05:52 97.8 Orders Complete Blood Count With Diff (06/23/16 02:23) Comprehensive Metabolic Panel (06/23/16 02:23) Urinalysis - C+S If Indicated (06/23/16 02:23) Iv Access Insert/Monitor (06/23/16 02:23) Oxygen Administration (06/23/16 02:23) Oximetry (06/23/16 02:23) Lipase (06/23/16 02:23) Ct Abd/Pel W Iv Contrast(Rout) (06/23/16 05:57) Oral Contrast - Adult (06/23/16 06:03) Chest, Single Ap (06/23/16 06:10) Methylprednisolone So Succ Inj (Solumedr (06/23/16 06:30) Albuterol-Ipratropium Neb (Duoneb Neb) (06/23/16 06:30) Diatrizoate Liq ( Gastroview Liq) (06/23/16 06:41) Sodium Chlor 0.9% 1000 Ml Inj (Ns 1000 M (06/23/16 07:00) Blood Glucose (06/23/16 06:46) Iohexol 350 Inj (Omnipaque 350 Inj) (06/23/16 07:55) Labs Laboratory Tests Test 06/23/16 06/23/16 02:40 02:45 Urine Color YELLOW Urine Turbidity HAZY Urine pH 5.5 Urine Specific [place] 1.032 Urine Protein TRACE mg/dL Urine Glucose (UA) NEG mg/dL Urine Ketones 150 mg/dL Urine Occult Blood NEG Urine Nitrite NEG Urine Bilirubin NEG Urine Urobilinogen LESS THAN 2.0 MG/DL Urine Leukocyte Esterase NEG Urine RBC 2 /hpf Urine WBC 1 /hpf Urine Mucus FEW /lpf Microscopic Urinalysis Comment CULT NOT INDICATED White Blood Count 11.4 TH/MM3 Red Blood Count 5.10 MIL/MM3 Hemoglobin 14.9 GM/DL Hematocrit 44.2 % Mean Corpuscular Volume 86.8 FL Mean Corpuscular Hemoglobin 29.2 PG Mean Corpuscular Hemoglobin 33.6 % Concent Red Cell Distribution Width 14.5 % Platelet Count 261 TH/MM3 Mean Platelet Volume 8.6 FL Neutrophils (%) (Auto) 63.1 % Lymphocytes (%) (Auto) 24.0 % Monocytes (%) (Auto) 9.5 % Eosinophils (%) (Auto) 2.8 % Basophils (%) (Auto) 0.6 % Neutrophils # (Auto) 7.2 TH/MM3 Lymphocytes # (Auto) 2.7 TH/MM3 Monocytes # (Auto) 1.1 TH/MM3 Eosinophils # (Auto) 0.3 TH/MM3 Basophils # (Auto) 0.1 TH/MM3 CBC Comment DIFF FINAL Differential Comment Sodium Level 140 MEQ/L Potassium Level 3.5 MEQ/L Chloride Level 102 MEQ/L Carbon Dioxide Level 28.6 MEQ/L Anion Gap 9 MEQ/L Blood Urea Nitrogen 24 MG/DL Creatinine 0.91 MG/DL Estimat Glomerular Filtration 93 ML/MIN Rate Random Glucose 67 MG/DL Calcium Level 9.3 MG/DL Total Bilirubin 1.3 MG/DL Aspartate Amino Transf 20 U/L (AST/SGOT) Alanine Aminotransferase 21 U/L (ALT/SGPT) Alkaline Phosphatase 125 U/L Total Protein 7.7 GM/DL Albumin 4.2 GM/DL Lipase 111 U/L [facility] Supervised Visit with EUGENIA: No Interpretation(s) Afebrile, mild tachycardia, normotensive Mild leukocytosis Electrolytes are reassuring Lipase is normal Urinalysis demonstrates some ketones Last 24 hours Impressions Chest X-Ray 06/23/16 0610 Signed Impressions: Service Date/Time: Thursday, June 23, 2016 06:40 - CONCLUSION: Normal examination for a patient of this age. Rio Kelley MD Abdomen/Pelvis CT 06/23/16 0557 Signed Impressions: Service Date/Time: Thursday, June 23, 2016 07:47 - CONCLUSION: 1. Small area of inflammation in the omentum in the left lower quadrant significantly improved when compared to previous examination. Primary considerations include a resolving epiploic appendagitis. No free air, abscess or findings to indicate bowel obstruction are seen. Leandro Cash MD Differential Diagnosis Diverticulitis, abscess, colitis, sepsis Narrative Course This is a 36-year-old male who presents to the emergency department with abdominal pain. He was found to have suspected epiploic appendagitis on prior CT which is resolving today. Labs are obtained which were reassuring. Patient does have some evidence of dehydration. He was given IV fluids in the emergency Department. His labs and imaging are reassuring and I don't think he has a surgical emergency. Patient can be discharged home. Diagnosis Primary Impression: Abdominal pain Qualified Code: R10.32 - Left lower quadrant pain Patient Instructions: General Instructions Med/Other Pt SpecificInfo: No Change to Meds Scripts No Active Prescriptions or Reported Meds Disposition: 01 DISCHARGE HOME Condition: Stable Bhavna Velasco MD Jun 23, 2016 08:15
== END 2016-06-23 10:42 | disposition home or self-care (01) ==
LOC: NEPE 21:41
DX: R10.32 Left lower quadrant pain (principal); J39.8 Other specified diseases of upper respiratory tract; R06.02 Shortness of breath; Z87.891 Personal history of nicotine dependence
CPT/HCPCS: 71010; 74177; 80053; 81001; 83690; 85025; 94640; 94664; 96361; 96374; 99284; J2930; J7030; Q9963; Q9967

== ENCOUNTER 2016-08-12 19:40 | Emergency (ER) | payer MEDICAID, OTHER ==
[~2016-08-12] VITALS: Ht 180.3 cm; Wt 70.0 kg
[2016-08-12 20:24] VITALS: BP 116/91; PULSE 95; RESP 16; TEMP 97.2; O2SAT 95
--- NOTE | 2016-08-12 20:38 | PD ---
HPI Chief Complaint: Alcohol/Drug Intoxication Time Seen by Provider: 20:33 Travel History International Travel<30 days: No Contact w/Intl Traveler<30days: No Traveled to known affect area: No History of Present Illness HPI 36-year-old male to presents to the ED for evaluation of alcohol intoxication. Patient was found by police to have been publicly intoxicated. Patient apparently has been drinking multiple lung on ice teas and he was found to be very belligerent and acting inappropriate so he was put on the ramp [place] act by police. Patient comes here for evaluation of this. Patient denies any medical problem. Denies any chest pain or shortness of breath. Denies using any drugs. Denies any suicidal or homicidal ideation. Denies any other medical problems at this time. States that he was drinking with significant other who apparently is also here under a [place] act as well. On my examination patient has no slurred speech and has steady gait. He appears to be appropriate. Allergy to sulfa. PFSH Past Medical History Cancer: No Cardiovascular Problems: No Diminished Hearing: No Diverticulitis: Yes Endocrine: No Genitourinary: No Immune Disorder: No Neurologic: No Psychiatric: No Reproductive: No Respiratory: No Past Surgical History Other Surgery: Yes (appendectomy) Social History Alcohol Use: No Tobacco Use: No (the patient reports that he quit smoking 2-3 years ago) Substance Use: No Allergies-Medications (Allergen,Severity, Reaction): Coded Allergies: Sulfa (Verified Allergy, Severe, 06/22/16) Reported Meds & Prescriptions Reported Meds & Active Scripts Active No Active Prescriptions or Reported Medications Review of Systems Except as stated in HPI: all other systems reviewed are Neg Physical Exam Narrative GENERAL: SKIN: Warm and dry. HEAD: Atraumatic. Normocephalic. EYES: Pupils equal and round 4 mm reactive to light and accommodation. No scleral icterus. No injection or drainage. ENT: No nasal bleeding or discharge. Mucous membranes pink and moist. Tongue is midline. No uvula deviation. NECK: Trachea midline. No JVD. CARDIOVASCULAR: Regular rate and rhythm. No murmurs, S3, S4. RESPIRATORY: No accessory muscle use. Clear to auscultation. Breath sounds equal bilaterally. GASTROINTESTINAL: Abdomen soft, non-tender, nondistended. Hepatic and splenic margins not palpable. MUSCULOSKELETAL: Extremities without clubbing, cyanosis, or edema. No obvious deformities. Full range of motion of the upper and lower extremities bilaterally. Steady gait. 2+ pulses bilaterally. NEUROLOGICAL: Awake and alert. No obvious cranial nerve deficits. Motor grossly within normal limits. Five out of 5 muscle strength in the arms and legs. Normal speech. PSYCHIATRIC: Appropriate mood and affect; insight and judgment normal. Data Data Last Documented VS Vital Signs Date Time Temp Pulse Resp B/P Pulse Ox O2 Delivery O2 Flow Rate FiO2 08/12/16 20:24 97.2 95 16 116/91 95 MDM Medical Decision Making Medical Screen Exam Complete: Yes Emergency Medical Condition: Yes Medical Record Reviewed: Yes Differential Diagnosis Alcohol abuse versus normal exam versus alcohol intoxication Narrative Course 36-year-old male that presents to the on the remainder psych for evaluation of alcohol abuse. Patient was properly examined and was found to have signs and symptoms consistent with alcohol abuse. Patient has been observed here and appears to be no acute distress. Patient at this time appears to be clinically sober. He answers questions a properly and ambulates with no difficulty. No signs of withdrawal symptoms noted. Vitals are within normal limits. At this time discharge nurse will contact a taxi for patient to go home. Patient agrees with this plan. Patient was instructed to stop drinking alcohol. Follow with PCP. See ED worsening symptoms. Diagnosis Primary Impression: Alcohol abuse Patient Instructions: General Instructions Additional Instructions: Still drinking alcohol. Follow with PCP. See ED worsening symptoms. Med/Other Pt SpecificInfo: No Change to Meds Scripts No Active Prescriptions or Reported Meds Disposition: 01 DISCHARGE HOME Condition: Stable Shemar Powell Aug 12, 2016 20:38
== END 2016-08-12 21:31 | disposition home or self-care (01) ==
LOC: NEDAMB 19:40
DX: F10.10 Alcohol abuse, uncomplicated (principal)
CPT/HCPCS: 99284

== ENCOUNTER 2016-11-22 10:14 | Emergency (ER) | payer MEDICAID, OTHER ==
[~2016-11-22] VITALS: Ht 180.3 cm; Wt 60.3 kg
[2016-11-22 10:17] VITALS: BP 142/88; PULSE 88; RESP 16; TEMP 97.7; O2SAT 96
[2016-11-22] MEDS ORDERED: IBUP-232 PO (11:34)
[2016-11-22] MEDS ORDERED: PENI500T PO (11:34)
[2016-11-22] MEDS ORDERED: TRAM50TA PO (11:34)
[2016-11-22] MEDS ORDERED: ACETAMINOPHEN/HYDROcodone 325 MG/7.5 MG TAB PO ONE (11:45)
--- NOTE | 2016-11-22 11:48 | PD ---
HPI Chief Complaint: Oral / Dental Pain or Problem Time Seen by Provider: 11:35 Travel History International Travel<30 days: No Contact w/Intl Traveler<30days: No Traveled to known affect area: No History of Present Illness HPI 36-year-old male presents to the emergency room for evaluation of dental pain for the past 1.5 weeks it started worsening today's ago. Patient states he chipped his tooth but does not remember how. Since then he has had increasing pain but over the past 2 days has been unbearable. States yesterday there was right-sided facial swelling but that has gone down. He has taken Tylenol, Motrin, Anbesol, and Orajel; they initially worked but has stopped working. States he has severe pain with eating, drinking, or when air passes over the area. Pain is radiating into his jaw. Patient denies fever, chills, nausea, and vomiting. He does not have a dentist. PFSH Past Medical History Cancer: No Cardiovascular Problems: No Diminished Hearing: No Diverticulitis: Yes Endocrine: No Gastrointestinal Disorders: Yes Genitourinary: No Immune Disorder: No Neurologic: No Psychiatric: No Reproductive: No Respiratory: No Tetanus Vaccination: < 5 Years Influenza Vaccination: Yes Past Surgical History Appendectomy: Yes Other Surgery: Yes (right arm r/t injury, throat) Social History Alcohol Use: Yes (states seldom mix drinks or beer) Tobacco Use: No (1/2 ppd of cigs) Substance Use: No (denies) Allergies-Medications (Allergen,Severity, Reaction): Coded Allergies: Sulfa (Verified Allergy, Severe, 11/22/16) Reported Meds & Prescriptions Reported Meds & Active Scripts Active No Active Prescriptions or Reported Medications Review of Systems Except as stated in HPI: all other systems reviewed are Neg Physical Exam Narrative GENERAL: Well-nourished, well-developed male in no acute distress. Afebrile. Ambulatory. Vital signs stable. SKIN: Focused skin assessment warm/dry. HEAD: Normocephalic. No tenderness to palpation of the jaw. EYES: No scleral icterus. No injection or drainage. DENTAL: No malocclusion. Mild decay throughout. Tooth #3 has a large cavity. No erythema, edema, or drainage. No submental, some mandibular, or buccal induration. NECK: Supple, trachea midline. No JVD or lymphadenopathy. CARDIOVASCULAR: Regular rate and rhythm without murmurs, gallops, or rubs. RESPIRATORY: Breath sounds equal bilaterally. No accessory muscle use. No crackles, rales, wheezes, or rhonchi. Data Data Last Documented VS Vital Signs Date Time Temp Pulse Resp B/P Pulse Ox O2 Delivery O2 Flow Rate FiO2 11/22/16 11:10 16 11/22/16 10:17 97.7 88 142/88 96 Room Air Orders Acetamin-Hydrocod 325-7.5 Mg (Mcguffey 7.5 (11/22/16 11:45) MDM Medical Decision Making Medical Screen Exam Complete: Yes Emergency Medical Condition: Yes Medical Record Reviewed: Yes Differential Diagnosis Dentalgia, dental cavity, gingivitis Narrative Course 36-year-old male presents to the emergency room for evaluation of right upper tooth pain for the past 1.5 weeks after breaking his tooth. States the last 2 days it has been especially excruciating and unbearable. Physical exam is reassuring. There is a large cavity in tooth #3. No evidence of secondary infection. No edema. No drainage or erythema. EFORSCE negative. Patient was given Lortab in the emergency room. Patient was given dental emergencies handout. He was discharged with prescriptions for penicillin, ibuprofen, and tramadol. Told to follow up with her dentist or return for worsening symptoms. He understands and agrees to plan. Diagnosis Primary Impression: Dentalgia Referrals: Primary Care Physician Patient Instructions: General Instructions, Toothache (ED) Additional Instructions: Rest and drink plenty of fluids. Penicillin as directed, until gone. Tramadol as directed, as needed for pain. Do not drink alcohol or drive while taking this medication. Ibuprofen with food as directed, as needed for pain. Follow-up with a dentist. Return to the emergency room for worsening symptoms. Med/Other Pt SpecificInfo: Prescription(s) given Scripts Penicillin V Potassium 500 Mg [id number] Mg PO Q8H 7 Days Ref 0 Prov:Prem Dozier MD 11/22/16 Ibuprofen 600 Mg [id number] Mg PO Q8HR PRN (PAIN) #21 TAB Ref 0 Prov:Prem Dozier MD 11/22/16 Tramadol 50 Mg Tab50 Mg PO Q8H PRN (PAIN) #7 TAB Ref 0 Prov:Prem Dozier MD 11/22/16 Disposition: 01 DISCHARGE HOME Condition: Stable Margo Ugalde Nov 22, 2016 11:48
[2016-11-22 12:14] VITALS: RESP 16
== END 2016-11-22 12:15 | disposition home or self-care (01) ==
LOC: PHED 10:14 → PHEFT 12:15
DX: K08.89 Other specified disorders of teeth and supporting structures (principal); F17.210 Nicotine dependence, cigarettes, uncomplicated
CPT/HCPCS: 99284

== ENCOUNTER 2016-11-22 21:56 | Emergency (ER) | payer MEDICAID ==
[~2016-11-22 21:56] MED LIST: IBUP-232 PO; PENI500T PO; TRAM50TA PO
== END 2016-11-22 22:17 | disposition left against medical advice (07) ==
LOC: PHED 21:56
DX: R51 Headache (principal)
CPT/HCPCS: 99281

== ENCOUNTER 2016-11-26 11:14 | Emergency (ER) | payer MEDICAID ==
[~2016-11-26] VITALS: Ht 180.3 cm; Wt 60.0 kg
[2016-11-26 11:25] VITALS: BP 131/71; PULSE 84; RESP 18; TEMP 97.5; O2SAT 99
[2016-11-26] MEDS ORDERED: KETOROLAC TROMETHAMINE 60 MG/2 ML (IM) VIAL IM ONE (11:30)
--- NOTE | 2016-11-26 11:36 | PD ---
HPI Chief Complaint: Oral / Dental Pain or Problem Time Seen by Provider: 11:20 Travel History International Travel<30 days: No Contact w/Intl Traveler<30days: No Traveled to known affect area: No History of Present Illness HPI 36-year-old male presents to the emergency department for evaluation of right upper dental pain 2 weeks. Patient reports she was recently seen here and put on penicillin, Motrin, Ultram. He reports taking these medications despite that he still having pain. He denies fever or chills. He denies sitting up appointment with the dentist. He presents emergency department requesting that tooth extracted. PFSH Past Medical History Medical History: Denies Significant Hx Cancer: No Cardiovascular Problems: No Diminished Hearing: No Diverticulitis: Yes Endocrine: No Gastrointestinal Disorders: Yes Genitourinary: No Immune Disorder: No Neurologic: No Psychiatric: No Reproductive: No Respiratory: No Tetanus Vaccination: < 5 Years Influenza Vaccination: Yes Past Surgical History Appendectomy: Yes Other Surgery: Yes (Throat, RFA) Social History Alcohol Use: No (Denies today) Tobacco Use: No (Denies today) Substance Use: No Allergies-Medications (Allergen,Severity, Reaction): Coded Allergies: Sulfa (Verified Allergy, Unknown, Unknown, 11/26/16) Reported Meds & Prescriptions Reported Meds & Active Scripts Active Penicillin V Potassium 500 Mg Tab 500 Mg PO Q8H 7 Days Ibuprofen 600 Mg Tab 600 Mg PO Q8HR PRN Tramadol (Tramadol HCl) 50 Mg Tab 50 Mg PO Q8H PRN Review of Systems Except as stated in HPI: all other systems reviewed are Neg General / Constitutional: No: Fever Eyes: No: Visual changes HENT: No: Headaches Cardiovascular: No: Chest Pain or Discomfort Respiratory: No: Shortness of Breath Gastrointestinal: No: Abdominal Pain Physical Exam Narrative GENERAL: Well-nourished, well-developed patient. SKIN: Focused skin assessment warm/dry. HEAD: Normocephalic. EYES: No scleral icterus. No injection or drainage. MOUTH: Dental caries present in tooth #2 through 4 with surrounding gum tenderness. No identifiable abscess. NECK: Supple, trachea midline. No JVD or lymphadenopathy. CARDIOVASCULAR: Regular rate and rhythm without murmurs, gallops, or rubs. RESPIRATORY: Breath sounds equal bilaterally. No accessory muscle use. MUSCULOSKELETAL: No cyanosis, or edema. Data Data Last Documented VS Vital Signs Date Time Temp Pulse Resp B/P Pulse Ox O2 Delivery O2 Flow Rate FiO2 11/26/16 11:25 97.5 84 18 131/71 99 Orders Ketorolac Inj (Toradol Inj) (11/26/16 11:30) [facility] Medical Decision Making Medical Screen Exam Complete: Yes Emergency Medical Condition: Yes Differential Diagnosis Dental caries, dental infection, dentalgia Narrative Course 36-year-old male presents emergency department for evaluation of right upper dental pain. Patient reports he was recently seen and put on penicillin, Motrin , Ultram. Despite this he reports the pain has remained. He denies fever or chills. He reports he has not made an appointment with dentist for follow-up. Discussed physical exam is reassuring. He reports pain at tooth #3. There is no identifiable abscess. There is widespread dental decay. Patient be given a shot of Toradol and instructed to continue his current pain medicine and make a follow-up appointment with dentist this week. Diagnosis Primary Impression: Dentalgia Referrals: Dentist Disposition: DISCHARGE HOME Condition: Stable Tracie Slaughter Nov 26, 2016 11:36
== END 2016-11-26 11:54 | disposition home or self-care (01) ==
LOC: PHEFT 11:14
DX: K08.89 Other specified disorders of teeth and supporting structures (principal)
CPT/HCPCS: 96372; 99284; J1885

== ENCOUNTER 2016-11-28 20:57 | Emergency (ER) | payer MEDICAID ==
[~2016-11-28] VITALS: Ht 180.3 cm; Wt 60.0 kg
[2016-11-28 21:07] VITALS: BP 122/76; PULSE 93; RESP 24; TEMP 99.9; O2SAT 100
[2016-11-28 21:28] VITALS: BP 95/64; PULSE 87; RESP 20; O2SAT 100
[2016-11-28 22:00] VITALS: BP 114/75; PULSE 87; RESP 24; O2SAT 99
[2016-11-28] MEDS ORDERED: SODIUM CHLORIDE 0.9% FLUSH 10 ML FLUSH IVF PRN (22:15)
[2016-11-28] MEDS ORDERED: methylPREDNISolone SOD SUCC 125 MG/2 ML VIAL IVP ONE (22:15)
[2016-11-28] MEDS: RESP: ALBUTEROL 2.5 MG/IPRATROPIUM 0.5 MG NEB (SCH) INH ×2 (22:33→22:48)
--- NOTE | 2016-11-28 22:38 | RADRPT ---
EXAM DATE/TIME: 11/28/2016 22:26 [facility] COMPARISON: CHEST SINGLE AP, June 23, 2016, 6:40. INDICATIONS : Cough. MEDICAL HISTORY : Tracheal stenosis. SURGICAL HISTORY : Tracheostomy. ENCOUNTER: Initial ACUITY: 1 day PAIN SCORE: 0/10 LOCATION: Bilateral chest FINDINGS: A single view of the chest demonstrates the lungs to be symmetrically aerated without evidence of mas s, infiltrate or effusion. The cardiomediastinal contours are unremarkable. Osseous structures are intact. CONCLUSION: No acute disease. Oskar Ayon MD on November 28, 2016 at 22:36 Board Certified Radiologist. This report was verified electronically.
[2016-11-28 22:48] LABS: AUTOMATED NEUTROPHIL # 10.6 TH/MM3 (1.8-7.7); BASOPHIL # 0.1 TH/MM3 (0-0.2); BASOPHIL % 0.4 % (0.0-2.0); EOSINOPHIL # 0.3 TH/MM3 (0-0.4); EOSINOPHIL % 2.3 % (0.0-4.0); HEMATOCRIT 47.1 % (39.0-51.0); LYMPH % 11.9 % (9.0-44.0); LYMPHOCYTE # 1.6 TH/MM3 (1.0-4.8); MEAN CORPUSCULAR HEMOGLOBIN 28.1 PG (27.0-34.0); MEAN CORPUSCULAR HGB CONC 32.3 % (32.0-36.0); MONO % 7.2 % (0.0-8.0); NEUT % 78.2 % (16.0-70.0); PLATELET COUNT 244 TH/MM3 (150-450); RED BLOOD COUNT 5.41 MIL/MM3 (4.50-5.90); WHITE BLOOD COUNT 13.6 TH/MM3 (4.0-11.0)
[2016-11-28 22:49] LABS: HEMO FLAGS DIFF FINAL
[2016-11-28 22:57] LABS: POTASSIUM 3.6 MEQ/L (3.5-5.1)
[2016-11-28 23:00] LABS: BICARBONATE 29.8 MEQ/L (21.0-32.0)
[2016-11-28 23:05] LABS: APTT (PATIENT) 28.5 SEC (24.3-30.1); PROTHROMBIN TIME - PATIENT 10.7 SEC (9.8-11.6)
[2016-11-28] MEDS ORDERED: RESP: RACEPINEPHRINE 2.25% 0.5 ML NEB NEB ONE (23:15)
[2016-11-28] MEDS ORDERED: SODIUM CHLOR 0.9% 1000 ML INJ 1,000 ML IV ONE (23:15)
[2016-11-28] MEDS ORDERED: RESP: ALBUTEROL 2.5 MG/IPRATROPIUM 0.5 MG NEB (SCH) NEB ONE (23:30)
[2016-11-28] MEDS ORDERED: IOHEXOL 350 MG/ML 10 ML VIAL (for RAD DIAG) IV ONE (23:30)
[2016-11-28 23:40] VITALS: BP 129/68; PULSE 103; RESP 22; O2SAT 99
[2016-11-28] MEDS ORDERED: ONDANSETRON HCL 4 MG/2 ML VIAL IV PUSH ONE (23:45)
[2016-11-28] MEDS ORDERED: HYDROmorphone HCL PF 1 MG/ML VIAL IV PUSH ONE (23:45)
[2016-11-29 00:15] VITALS: BP 112/72; PULSE 84; RESP 20; O2SAT 99
--- NOTE | 2016-11-29 00:17 | RADRPT ---
EXAM DATE/TIME: 11/28/2016 23:32 [facility] COMPARISON: No previous studies available for comparison. INDICATIONS : Evaluate for abscess on right neck. IV CONTRAST: 100 cc Omnipaque 350 (iohexol) IV RADIATION DOSE: 13.22 CTDIvol (mGy) MEDICAL HISTORY : Respiratory. SURGICAL HISTORY : Tracheal. ENCOUNTER: Initial ACUITY: 3 days PAIN SCALE: 10/10 LOCATION: Right mandible TECHNIQUE: Volumetric scanning of the neck was performed. Using automated exposure control and adjustment of th e mA and/or kV according to patient size, radiation dose was kept as low as reasonably achievable to obtain optimal diagnostic quality images. DICOM format image data is available electronically for r eview and comparison. FINDINGS: NASOPHARYNX: The nasopharyngeal airway has a normal configuration. No mucosal thickening or mass is seen. OROPHARYNX: The intrinsic muscles of the tongue are symmetric. The tonsillar pillars are within normal limits. The prevertebral soft tissues are not thickened. LARYNX: The supraglottic, glottic, and infraglottic structures are within normal limits. SALIVARY GLANDS: The parotid and submandibular glands demonstrate no abnormality. LYMPH NODES: No enlarged or necrotic-appearing nodes. THYROID: Homogeneous enhancement without evidence of nodule. BONES: No acute abnormality is identified. There is mucoperiosteal thickening in the left frontal sinus and right maxillary sinus. CONCLUSION: No abscess is visualized. Dhiraj Maxwell MD on November 29, 2016 at 0:11 Board Certified Radiologist. This report was verified electronically.
[2016-11-29] MEDS ORDERED: CLINDAMYCIN INJ 600 MG in SODIUM CHLORIDE 0.9% INJ 100 ML IV ONE (00:30)
[2016-11-29] MEDS ORDERED: CLIN1CAP5 PO (01:09)
[2016-11-29] MEDS ORDERED: ALBU6.7H INH (01:09)
[2016-11-29] MEDS ORDERED: PRED50 PO (01:09)
[2016-11-29] MEDS ORDERED: TRAM50TA PO (01:09)
--- NOTE | 2016-11-29 01:15 | PD ---
HPI Chief Complaint: Respiratory Symptoms Time Seen by Provider: 22:14 Travel History International Travel<30 days: No Contact w/Intl Traveler<30days: No Traveled to known affect area: No History of Present Illness HPI 36 year-old male presents to the emergency department by private transportation for complaint of throat pain. Patient has history of tracheal stenosis. Patient reports periodically he feels as if the airway is swelling or becoming more narrow. Patient has not felt well for approximately one week and was recently prescribed amoxicillin for a dental infection. Patient complete course of antibiotic as prescribed does not feel like he is improving. Patient also feels like he is having increasing narrowing of his airway. Patient has not been seen by a local specialist but has recently moved to the area. Patient denies other concerns or complaints. PFSH Past Medical History Narrative Medical Tracheostenosis G6PD deficiency; denies tobacco use alcohol use or substance use ; nursing notes reviewed Cancer: No Cardiovascular Problems: No Diminished Hearing: No Diverticulitis: Yes Endocrine: No Gastrointestinal Disorders: Yes Genitourinary: No Immune Disorder: No Neurologic: No Psychiatric: No Reproductive: No Respiratory: No Tetanus Vaccination: Unknown Influenza Vaccination: Yes Past Surgical History Appendectomy: Yes Other Surgery: Yes (Throat, RFA) Social History Alcohol Use: No (Denies today) Tobacco Use: No (Denies today) Substance Use: No Allergies-Medications (Allergen,Severity, Reaction): Coded Allergies: Sulfa (Verified Allergy, Unknown, Unknown, 11/28/16) Reported Meds & Prescriptions Reported Meds & Active Scripts Active Tramadol (Tramadol HCl) 50 Mg Tab 50 Mg PO Q6H PRN Proventil Hfa 6.7 GM Inh (Albuterol Sulfate) 90 Mcg/Act Aer 2 Puff INH Q4-6H PRN Prednisone 50 Mg Tab 50 Mg PO DAILY 4 Days Clindamycin (Clindamycin HCl) 150 Mg Cap 300 Mg PO Q6H 7 Days Penicillin V Potassium 500 Mg Tab 500 Mg PO Q8H 7 Days Ibuprofen 600 Mg Tab 600 Mg PO Q8HR PRN Tramadol (Tramadol HCl) 50 Mg Tab 50 Mg PO Q8H PRN Review of Systems Except as stated in HPI: all other systems reviewed are Neg General / Constitutional: Positive: Chills, No: Fever HENT: Positive: Dental Difficulties, No: Headaches, Congestion Cardiovascular: No: Chest Pain or Discomfort Respiratory: Positive: Other (hoarseness), No: Shortness of Breath Gastrointestinal: No: Abdominal Pain Genitourinary: No: Flank Pain Musculoskeletal: No: Myalgias, Arthralgias Skin: No Rash Neurologic: No: Weakness Psychiatric: No: Anxiety Hematologic/Lymphatic: No: Lymph Node Enlargement Physical Exam Narrative GENERAL: Well-developed well-nourished 5 male in no acute distress no respiratory distress with hoarseness. SKIN: Warm and dry. HEAD: Normocephalic. EYES: No scleral icterus. No injection or drainage. ENT mucous membranes moist airway is patent. NECK: Supple, trachea midline. No JVD or lymphadenopathy. CARDIOVASCULAR: Regular rate and rhythm without murmurs, gallops, or rubs. RESPIRATORY: Breath sounds equal bilaterally few expiratory wheezes. No accessory muscle use. GASTROINTESTINAL: Abdomen soft, non-tender, nondistended. MUSCULOSKELETAL: No cyanosis, or edema. BACK: Nontender without obvious deformity. No CVA tenderness. Data Data Last Documented VS Vital Signs Date Time Temp Pulse Resp B/P Pulse Ox O2 Delivery O2 Flow Rate FiO2 11/29/16 01:16 98.5 99 17 129/68 99 11/28/16 23:40 Room Air Orders Complete Blood Count With Diff (11/28/16 22:14) Basic Metabolic Panel (Bmp) (11/28/16 22:14) Act Partial Throm Time (Ptt) (11/28/16 22:14) Prothrombin Time / Inr (Pt) (11/28/16 22:14) Blood Culture (11/28/16 22:14) Iv Access Insert/Monitor (11/28/16 22:14) Ecg Monitoring (11/28/16 22:14) Oximetry (11/28/16 22:14) Oxygen Administration (11/28/16 22:14) Chest, Single Ap (11/28/16 22:14) Sodium Chloride 0.9% Flush (Ns Flush) (11/28/16 22:15) Methylprednisolone So Succ Inj (Solumedr (11/28/16 22:15) Albuterol-Ipratropium Neb (Duoneb Neb) (11/28/16 22:15) Sodium Chlor 0.9% 1000 Ml Inj (Ns 1000 M (11/28/16 23:15) Racemic Epinephrine 2.25% Neb (Racepinep (11/28/16 23:15) Ct Soft Tiss Neck W Iv Cont (11/28/16 ) Albuterol-Ipratropium Neb (Duoneb Neb) (11/28/16 23:30) Ondansetron Inj (Zofran Inj) (11/28/16 23:45) Hydromorphone Pf Inj (Dilaudid Pf Inj) (11/28/16 23:45) Iohexol 350 Inj (Omnipaque 350 Inj) (11/28/16 23:30) Clindamycin Inj (Cleocin Inj) (11/29/16 00:30) Labs Laboratory Tests Test 11/28/16 22:00 White Blood Count 13.6 TH/MM3 Red Blood Count 5.41 MIL/MM3 Hemoglobin 15.2 GM/DL Hematocrit 47.1 % Mean Corpuscular Volume 87.0 FL Mean Corpuscular Hemoglobin 28.1 PG Mean Corpuscular Hemoglobin 32.3 % Concent Red Cell Distribution Width 15.0 % Platelet Count 244 TH/MM3 Mean Platelet Volume 9.1 FL Neutrophils (%) (Auto) 78.2 % Lymphocytes (%) (Auto) 11.9 % Monocytes (%) (Auto) 7.2 % Eosinophils (%) (Auto) 2.3 % Basophils (%) (Auto) 0.4 % Neutrophils # (Auto) 10.6 TH/MM3 Lymphocytes # (Auto) 1.6 TH/MM3 Monocytes # (Auto) 1.0 TH/MM3 Eosinophils # (Auto) 0.3 TH/MM3 Basophils # (Auto) 0.1 TH/MM3 CBC Comment DIFF FINAL Differential Comment Prothrombin Time 10.7 SEC Prothromb Time International 1.0 RATIO Ratio Activated Partial 28.5 SEC Thromboplast Time Sodium Level 142 MEQ/L Potassium Level 3.6 MEQ/L Chloride Level 106 MEQ/L Carbon Dioxide Level 29.8 MEQ/L Anion Gap 6 MEQ/L Blood Urea Nitrogen 12 MG/DL Creatinine 0.83 MG/DL Estimat Glomerular Filtration 104 ML/MIN Rate Random Glucose 76 MG/DL Calcium Level 8.9 MG/DL MDM Medical Decision Making Medical Screen Exam Complete: Yes Emergency Medical Condition: Yes Medical Record Reviewed: Yes Interpretation(s) Last Impressions Chest X-Ray 11/28/16 3816 Signed Impressions: Service Date/Time: Monday, November 28, 2016 22:26 - CONCLUSION: No acute disease. Oskar Ayon MD Neck CT 11/28/16 0000 Signed Impressions: Service Date/Time: Monday, November 28, 2016 23:32 - CONCLUSION: No abscess is visualized. Dhiraj Maxwell MD CBC & BMP Diagram 11/28/16 22:00 Vital Signs Date Time Temp Pulse Resp B/P Pulse Ox O2 Delivery O2 Flow Rate FiO2 11/28/16 23:40 103 22 129/68 99 Room Air 11/28/16 22:00 87 24 114/75 99 11/28/16 22:00 99 Room Air 11/28/16 21:32 87 26 100 Room Air 11/28/16 21:28 87 20 95/64 100 Room Air 11/28/16 21:07 99.9 93 24 122/76 100 Differential Diagnosis Pharyngitis tracheitis abscess sinusitis chronic pain syndrome reactive airways disease Narrative Course IV access obtained specimens collected and sent for resulting patient given Solu -Medrol IV along with DuoNeb 2. Patient with some hoarseness and stridorous type breathing that does not appear to cause him any difficulty however in view of his history of tracheal stenosis patient also received racemic epinephrine. Patient given additional DuoNeb updraft. CT soft tissue neck with IV contrast performed revealed no acute abnormality no abscess and no radiographic anatomical narrowing of the airway. Patient was treated with clindamycin IV fluids and times one dose of 0.5 mg Dilaudid for complaint of pain Patient aware of discharge planning and diagnosis and need for close follow-up with primary care provider/specialist Diagnosis Primary Impression: Sinusitis, acute maxillary Qualified Code: J01.00 - Acute maxillary sinusitis, recurrence not specified Additional Impressions: Tracheal stenosis Medication refill Referrals: Ear / Nose / Throat Specialist call for appointment [facility]: Dr Rios Patient Instructions: Narcotic given in the ED, General Instructions Additional Instructions: Increase fluid hydration Complete course of antibiotic as prescribed Complete course of steroid Return to the emergency department if any concerns or change in condition May take acetaminophen/Tylenol as needed for fever 100.4F or greater Med/Other Pt SpecificInfo: Prescription(s) given Scripts Tramadol 50 Mg Tab50 Mg PO Q6H PRN (PAIN) #12 TAB Ref 0 Prov:Yadi Gomez MD 11/29/16 Albuterol 6.7 GM Inh (Proventil Hfa 6.7 GM Inh)90 Mcg/Act Aer2 Puff INH Q4-6H PRN (SHORTNESS OF BREATH) #1 INHALER Ref 0 Prov:Yadi Gomez MD 11/29/16 Prednisone 50 Mg Tab50 Mg PO DAILY 4 Days Ref 0 Prov:Yadi Gomez MD 11/29/16 Clindamycin 150 Mg Shq633 Mg PO Q6H 7 Days Ref 0 Prov:Yadi Gomez MD 11/29/16 Disposition: 01 DISCHARGE HOME Condition: Stable Yadi Gomez MD Nov 29, 2016 01:15
[2016-11-29 01:16] VITALS: BP 129/68; TEMP 98.5
== END 2016-11-29 01:48 | disposition home or self-care (01) ==
LOC: PHED 20:57
DX: J01.00 Acute maxillary sinusitis, unspecified (principal); J39.8 Other specified diseases of upper respiratory tract; R49.0 Dysphonia; Z76.0 Encounter for issue of repeat prescription; Z86.39 Personal history of other endocrine, nutritional and metabolic disease; Z87.19 Personal history of other diseases of the digestive system
CPT/HCPCS: 70491; 71010; 80048; 85025; 85610; 85730; 87040; 94640; 94664; 96361; 96365; 96375; 99285; J1170; J2405; J2930; J7030; Q9967